=== PATIENT | male | born 1955 | race Caucasian/White ===

== ENCOUNTER → 2017-07-12 | Outpatient (CLI) | payer OTHER ==
--- NOTE | 2017-07-12 11:03 | RAD ---
CT of the head without contrast, 07/12/2017: History: Visual disturbance, dizziness There is moderate sized low density process in the medial aspect of the right occipital lobe. There is associated effacement of the atrium of the right lateral ventricle. The ventricles are otherwise within normal limits in size. There is no shift of the midline structures. There is no evidence of acute intracranial hemorrhage. No abnormal extra-axial fluid collection or mass is seen. IMPRESSION: Moderate size low density process in the medial right occipital lobe suggesting edema which may be due to recent infarct or underlying mass. MR scanning with gadolinium is suggested for further evaluation. Note: The radiographic technologist is currently calling this report to the ordering physician's office at 11:00 AM on 07/12/2017. PQRS Compliance Statement: One or more of the following individualized dose reduction techniques were utilized for this examination: 1. Automated exposure control 2. Adjustment of the mA and/or kV according to patient size 3. Use of iterative reconstruction technique
== END | disposition home or self-care (01) ==
LOC: CT 10:33
PROVIDERS: ATTEND General Practice
DX: I10 Essential (primary) hypertension (principal); H53.9 Unspecified visual disturbance; R42 Dizziness and giddiness
CPT/HCPCS: 70450